=== PATIENT | female | born 1950 | race Caucasian/White ===

== ENCOUNTER 2016-09-27 12:11 | Emergency (ER) | payer OTHER ==
[~2016-09-27] VITALS: Ht 165.1 cm; Wt 63.1 kg
[2016-09-27 12:53] LABS: HEMATOCRIT 40.6 % (36.0-46.0); MCH 30.9 PG (29.0-34.0); MCHC 34.2 G/DL (30.0-36.0); MCV 90.2 FL (83-99); MEAN PLAT.VOLUME 11.4 uM^3 (9.5-12.4); PLATELET COUNT 193 K/uL (156-360); RBC DIS.WIDTH-CV 11.7 % (11.8-14.6); RBC DIS.WIDTH-SD 38.4 % (39-53); WHITE BLOOD COUNT 11.5 K/uL (4.1-10.2)
[2016-09-27 13:29] LABS: ADD MIUA? YES; BILIRUBIN NEGATIVE; BLOOD SMALL; COLOR YELLOW ((YELLOW)); GLUCOSE (STRIP) NEGATIVE; KETONES 5; LEUKOCYTES MODERATE; NITRITE NEGATIVE; PROTEIN (STRIP) NEGATIVE; SPECIFIC GRAVITY 1.008 (1.000-1.030); UROBILINOGEN 0.2 MG/DL (0.2-1.0)
[2016-09-27 13:36] LABS: BACTERIA RARE /HPF; EPITHELIAL CELLS 1+ /HPF; MUCUS TRACE /LPF; RED BLOOD CELLS 0-5 /HPF (0-5); UCUL ADDED? NO
[2016-09-27 13:37] LABS: ANION GAP 9 MEQ/L (2-14); CHLORIDE 103 MEQ/L (99-109); POTASSIUM 4.4 MEQ/L (3.7-5.4); SAMPLE HEMOLYSIS CHECK 0; SAMPLE ICTERIC CHECK 0; SAMPLE LIPEMIA CHECK 0; SODIUM 136 MEQ/L (136-147); TOTAL BILIRUBIN 0.8 MG/DL (0.0-1.0)
[2016-09-27 13:43] LABS: ALKALINE PHOSPHATASE 88 IU/L (3-129); GFR ESTIMATE (CALCULATED) 53 mL/min/; GLUCOSE 108 mg/dL (70-99); UREA NITROGEN (BUN) 12 mg/dL (9-23)
[2016-09-27] MEDS ORDERED: FLAGYL500 MG PO (15:03)
[2016-09-27] MEDS ORDERED: CIPRO500 MG PO (15:03)
[2016-09-27 15:17] VITALS: BP 116/74
== END 2016-09-27 16:11 | disposition home or self-care (01) ==
LOC: EME 12:11
DX: K52.9 Noninfective gastroenteritis and colitis, unspecified (principal); E78.5 Hyperlipidemia, unspecified; Z88.6 Allergy status to analgesic agent
CPT/HCPCS: 74177; 80053; 81003; 85027; 99281; 99284

== ENCOUNTER 2016-10-18 11:10 | Emergency (ER) | payer OTHER ==
[~2016-10-18] VITALS: Ht 165.1 cm; Wt 60.3 kg
[~2016-10-18 11:10] MED LIST: CIPRO500 MG PO; FLAGYL500 MG PO
[2016-10-18 12:37] LABS: ADD MIUA? YES; BILIRUBIN NEGATIVE; BLOOD SMALL; COLOR YELLOW ((YELLOW)); GLUCOSE (STRIP) NEGATIVE; KETONES 5; LEUKOCYTES LARGE; NITRITE NEGATIVE; PROTEIN (STRIP) NEGATIVE; SPECIFIC GRAVITY 1.005 (1.000-1.030); UROBILINOGEN 0.2 MG/DL (0.2-1.0)
[2016-10-18 12:51] LABS: BACTERIA RARE /HPF; EPITHELIAL CELLS 2+ /HPF; MUCUS TRACE /LPF; UCUL ADDED? YES; WHITE BLOOD CELLS TNTC /HPF (0-5)
[2016-10-18 13:10] LABS: HEMATOCRIT 40.6 % (36.0-46.0); MCHC 34.5 G/DL (30.0-36.0); MEAN PLAT.VOLUME 11.9 uM^3 (9.5-12.4); PLATELET COUNT 180 K/uL (156-360); RBC DIS.WIDTH-CV 11.7 % (11.8-14.6); RBC DIS.WIDTH-SD 38.3 % (39-53); RED BLOOD COUNT 4.51 M/uL (3.80-5.20); WHITE BLOOD COUNT 4.1 K/uL (4.1-10.2)
[2016-10-18 13:20] LABS: CHLORIDE 104 mEq/L (99-109); POTASSIUM 3.7 mEq/L (3.7-5.4); SODIUM 138 mEq/L (136-147)
[2016-10-18 13:21] LABS: GLUCOSE 103 mg/dL (70-99)
[2016-10-18 13:23] LABS: ANION GAP 12 MEQ/L (2-14)
[2016-10-18 13:25] LABS: GFR ESTIMATE (CALCULATED) > 59 mL/min/
[2016-10-18 13:26] LABS: UREA NITROGEN (BUN) 13 mg/dL (9-23)
[2016-10-18 13:50] VITALS: BP 124/69
== END 2016-10-18 14:00 | disposition home or self-care (01) ==
LOC: EME 11:10
PROVIDERS: Emergency Medicine
DX: N81.4 Uterovaginal prolapse, unspecified (principal); N39.0 Urinary tract infection, site not specified
CPT/HCPCS: 80048; 81003; 85027; 87086; 99281; 99285